=== PATIENT | female | born 1965 | race Two or more races ===

== ENCOUNTER 2024-01-26 15:49 | Emergency (ER) | payer MEDICAID ==
[~2024-01-26] VITALS: Ht 154.9 cm; Wt 54.5 kg
[2024-01-26 16:13] VITALS: BP 132/85; PULSE 71; RESP 18; O2SAT 99
[2024-01-26 17:08] LABS: Urine Bacteria FEW /hpf (None Seen); Urine Blood Negative /uL (Negative); Urine Clarity Clear (Clear); Urine Color Yellow (Yellow); Urine Mucus FEW (None Seen); Urine Protein, UAD Negative (Negative); Urine Specific Gravity 1.022 (1.001-1.035); Urine Urobilinogen Normal (Negative); Urine WBC 2 /hpf (0 - 5); Urine pH 6.5 (5.0-8.0)
[2024-01-26] MEDS ORDERED: NITR-52 PO (20:28)
[2024-01-26] MEDS ORDERED: IBUP-1455 PO (20:28)
== END 2024-01-26 21:30 | disposition home or self-care (01) ==
LOC: ER 15:49
DX: N81.4 Uterovaginal prolapse, unspecified (principal); N39.0 Urinary tract infection, site not specified
CPT/HCPCS: 81001

== ENCOUNTER 2024-05-14 10:27 | Emergency (ER) | payer MEDICAID ==
[~2024-05-14] VITALS: Ht 149.9 cm; Wt 51.6 kg
[~2024-05-14 10:27] MED LIST: IBUP-1455 PO; NITR-52 PO
[2024-05-14] MEDS ORDERED: IBUP1TAB5 PO (11:53)
[2024-05-14 11:57] VITALS: BP 113/58; PULSE 75; RESP 16; TEMP 98.2; O2SAT 97
== END 2024-05-14 12:01 | disposition home or self-care (01) ==
LOC: ER 10:27
DX: S63.502A Unspecified sprain of left wrist, initial encounter (principal); E07.9 Disorder of thyroid, unspecified; E78.5 Hyperlipidemia, unspecified; W01.0XXA Fall on same level from slipping, tripping and stumbling without subsequent striking against object, initial encounter; Y93.89 Activity, other specified; Y92.89 Other specified places as the place of occurrence of the external cause; Y99.8 Other external cause status
CPT/HCPCS: 29125; 73110